=== PATIENT | female | born 1945 | race Caucasian/White ===

== ENCOUNTER 2020-05-05 11:29 | Emergency (ER) | payer BC, MEDICARE ==
[~2020-05-05] VITALS: Ht 157.5 cm; Wt 54.4 kg
--- NOTE | 2020-05-05 11:35 | NUR ---
[id number] with syncopal episode while walking her dog. per paramedics, pt is hypotensive. GIVEN 300ML NS [employer]. BG 179 [employer]. ALSO C/O R ANKLE PAIN/SWELLING. pt with IV line [employer] and on ongoing NS. awaiting for MD frazier
[2020-05-05 11:50] LABS: BASOPHILS % (AUTO) 0.5 % (0.0-2.0); EOSINOPHILS % (AUTO) 1.6 % (0.0-6.0); HEMATOCRIT 33 % (33-45); LYMPHOCYTES # (AUTO) 2.5 /CMM (0.8-4.8); LYMPHOCYTES % (AUTO) 36.3 % (20.0-44.0); MEAN CORPUSCULAR HGB CONC 34 g/dl (31.0-36.0); MEAN CORPUSCULAR VOLUME 94 fL (82-100); MONOCYTES # (AUTO) 0.5 /CMM (0.1-1.30); MONOCYTES % (AUTO) 6.5 % (2.0-12.0); NEUTROPHILS # (AUTO) 3.8 /CMM (1.8-8.9); NEUTROPHILS % (AUTO) 55.1 % (43.0-81.0); PLATELET COUNT (AUTO) 208 /CMM (150-450); WHITE BLOOD COUNT (AUTO) 6.9 K/uL (4.3-11.0)
--- NOTE | 2020-05-05 11:52 | NUR ---
pt in bed alert and oriented. able to follow commands. no c/o pain or discomfort. all needs attended. kept pt comfortable. will continue poc
[2020-05-05 11:57] LABS: CARBON DIOXIDE 28 mmol/L (21-32); CHLORIDE 105 mmol/L (98-107); CREATININE 0.9 mg/dL (0.6-1.3); GLUCOSE 116 mg/dL (74-106); POTASSIUM 3.8 mmol/L (3.5-5.1); SODIUM SERUM 142 mmol/L (136-145); UREA NITROGEN, BLOOD 26 mg/dL (7-18)
[2020-05-05] MEDS ORDERED: ATOR10TA PO (11:58)
[2020-05-05] MEDS ORDERED: LEVO50TA8 PO (11:58)
[2020-05-05 12:03] LABS: ALANINE AMINOTRANSFERASE 21 U/L (12-78); ALBUMIN 3.5 g/dL (3.4-5.0); ALKALINE PHOSPHATASE 49 U/L (46-116); ASPARTATE AMINOTRANSFERASE 21 U/L (15-37); BILIRUBIN,DIRECT 0.1 mg/dL (0.0-0.2); BILIRUBIN,TOTAL 0.3 mg/dL (0.2-1.0); TOTAL PROTEIN, SERUM 6.1 g/dL (6.4-8.2)
--- NOTE | 2020-05-05 12:09 | NUR ---
COOK CAMP AT BEDSIDE DOING XRAY
--- NOTE | 2020-05-05 12:43 | NUR ---
PT OUT FOR CT SCAN
[2020-05-05 14:16] VITALS: BP 119/68
== END 2020-05-05 14:18 | disposition home or self-care (01) ==
LOC: ER 11:37
DX: S82.54XA Nondisplaced fracture of medial malleolus of right tibia, initial encounter for closed fracture (principal); G89.29 Other chronic pain; M54.9 Dorsalgia, unspecified; Z90.89 Acquired absence of other organs; Z79.899 Other long term (current) drug therapy; W01.0XXA Fall on same level from slipping, tripping and stumbling without subsequent striking against object, initial encounter; Y93.K1 Activity, walking an animal; Y92.89 Other specified places as the place of occurrence of the external cause; Y99.8 Other external cause status
CPT/HCPCS: 36415; 70450-TC; 71045-TC; 72125-TC; 73610-TC; 80048-TC; 80076-TC; 84484-TC; 85025-TC